=== PATIENT | female | born 1965 | race Caucasian/White ===

== ENCOUNTER 2021-09-25 13:04 | Emergency (ER) | payer SELFPAY ==
[~2021-09-25] VITALS: Ht 160 cm; Wt 59.0 kg
--- NOTE | 2021-09-25 13:40 | NUR ---
ARRIVAL PT ARRIVED AMBULATORY TO ED 7 WITH C/O A FEVER, CONGESTION, AND SORE THROAT STARTING THIS MORNING.
[2021-09-25 13:53] VITALS: BP 118/59
[2021-09-25] MEDS ORDERED: TORADOL IM STA (13:59)
--- NOTE | 2021-09-25 13:59 | ER.PDOC ---
General Chief Complaint: Fever Stated Complaint: COUGH,SORE THROAT Time seen by MD: 13:45 Source: patient Exam Limitations: no limitations History of Present Illness Initial Comments Patient is a 56-year-old female with past medical history of thyroid disease who presents today with upper respiratory-like symptoms over the past 3 days. Patient states that she was recently exposed to COVID and over the past 3 days that she has had upper respiratory like symptoms including a sore throat nasal congestion and a runny nose and a mild nonproductive cough. Patient states that the symptoms are made worse with activity and cold and better at rest and when she is warmer.Patient denies any nausea vomiting changes in stool or urine. Patient denies any chest pain. Past medical history as above Social history patient denies drugs - occ etoh and former smoker Family history noncontributory Meds allergies reviewed Allergies: Coded Allergies: No Known Allergies (Unverified , 09/25/21) Constitutional: denies chills, denies diaphoresis, denies fever EENTM: denies eye pain, denies blurred vision, denies tearing, denies double vision, denies ear pain, denies ear discharge, denies nose pain; nose congestion , throat pain; denies throat swelling, denies mouth pain, denies mouth swelling Respiratory: cough; denies shortness of breath Cardiovascular: denies chest pain, denies irregular heart rate, denies lightheadedness, denies palpitations Gastrointestinal: denies abdomen distended, denies abdominal pain, denies constipated, denies diarrhea, denies nausea, denies vomiting Genitourinary: denies burning, denies dysuria Musculoskeletal: denies back pain Skin: denies change in color, denies lesions Psychiatric/Neurological: denies emotional problems, denies headache Endocrine: denies increased hunger, denies increased thrist Hematologic/Lymphatic: denies easy bleeding Past Medical History Medical History: other (Thyroid disease) Family History Significant Family History: no pertinent family hx Social History Smoking: quit greater than 1 year Alcohol Use: occassionally Drug Use: none Reviewed Nursing Reviewed: Vital Signs, Abn. Noted, Nursing Assessment Physical Exam General Appearance: alert, no distress Eye: eyes nml inspection, lids & conjunct. nml, PERRL, no nystagmus Ear: ear nml Nose: rhinorrhea, mucosal edema Throat: pharyngeal erythema Neck: nml inspection, supple Respiratory: no resp.distress, breath sounds nml Abdomen: non-tender, no organomegaly CVS: reg rate & rhythm, heart sounds nml Skin: color nml, no rash, warm/dry Extremities: non-tender, nml ROM, no pedal edema NEURO/PSYCH: oriented x 3, CN's nml as tested, motor nml, sensation nml, mood/affect nml Results/Orders Results/Orders Orders - KELSEY DIAZ MD Covid19 Antigen Jacinda Diana (09/25/21 13:07) Influenza A&B (09/25/21 13:07) Strep Screen (09/25/21 13:07) Ketorolac Tromethamine (Toradol) (09/25/21 13:59) Ketorolac Tromethamine (Toradol) (09/25/21 14:02) Vital Signs Date Time Temp Pulse Resp B/P (MAP) Pulse Ox O2 Delivery O2 Flow Rate FiO2 09/25/21 13:53 97.8 69 18 118/59 (78) 99 Room Air* 0 21 09/25/21 13:53 97.8 69 18 09/25/21 13:53 97.8 69 18 99 Administered Medications Medications (Trade) Dose Ordered Sig/Lauren Route PRN Reason Start Time Stop Time Status Last Admin Dose Admin Ketorolac Tromethamine (Toradol) 15 mg OT STAT IM 09/25/21 13:59 09/25/21 14:01 DC 09/25/21 14:04 15 MG Laboratory Tests Test 09/25/21 13:46 Influenza Type A Antigen NEGATIVE (NEG) Influenza Type B Antigen NEGATIVE (NEG) SARS-CoV-2 Antigen (Rapid) NEGATIVE (NEGATIVE) Group A Streptococcus Screen POSITIVE (NEGATIVE) A Progress Progress Patient here with upper respiratory infection-like symptoms with known exposure to COVID. Will swab for flu COVID and strep as she does have some pharyngeal edema. We will give ketorolac for symptom relief. [id number] patient feeling about the same discussed with her that she tested positive for strep we will discharge patient with amoxicillin prescription as well as primary care follow-up. Patient otherwise well- appearing ER DEPART Departure Time of Disposition: 14:19 Disposition: 01 HOME / SELF CARE / HOMELESS Impression: Primary Impression: Strep pharyngitis Condition: Stable Patient Instructions: Strep Throat Additional Instructions: Please follow-up with your primary care physician within 1 week. If you have any new persistent or worsening symptoms or concerns please seek emergent medical attention. Please take all antibiotics as prescribed. Duration or Time Spent with Pa: 30 KELSEY DIAZ MD Sep 25, 2021 13:59
[2021-09-25] MEDS ORDERED: TORADOL ONE (14:02)
[2021-09-25 14:23] VITALS: BP 118/59
== END 2021-09-25 14:28 | disposition home or self-care (01) ==
LOC: ER 13:04
DX: J02.0 Streptococcal pharyngitis (principal); Z20.822 Contact with and (suspected) exposure to COVID-19; E07.9 Disorder of thyroid, unspecified; F10.20 Alcohol dependence, uncomplicated; F17.210 Nicotine dependence, cigarettes, uncomplicated; R05.9 Cough, unspecified
CPT/HCPCS: 99283; 87426; 96372; 87880; 87804 ×2; J1885

== ENCOUNTER 2024-03-03 14:24 | Emergency (ER) | payer OTHER ==
[~2024-03-03] VITALS: Ht 160 cm; Wt 59.0 kg
[2024-03-03 15:06] VITALS: BP 92/60; PULSE 67; RESP 18; TEMP 98.5; O2SAT 99
[2024-03-03] MEDS ORDERED: SOLU-MEDROL ONE (15:20)
[2024-03-03] MEDS: SOLU-MEDROL IM STA (15:26)
[2024-03-03 16:18] VITALS: BP 92/60; PULSE 65; RESP 18; TEMP 98.5; O2SAT 99
== END 2024-03-03 16:19 | disposition home or self-care (01) ==
LOC: ER 14:24
DX: B34.9 Viral infection, unspecified (principal); J44.89 Other specified chronic obstructive pulmonary disease; Z90.710 Acquired absence of both cervix and uterus; Z90.89 Acquired absence of other organs; Z95.0 Presence of cardiac pacemaker
CPT/HCPCS: 99283; 96372; J2919; J2930